=== PATIENT | male | born 1960 | race Caucasian/White ===

== ENCOUNTER 2017-12-01 08:49 | Inpatient (IN) | payer BC, OTHER, SELFPAY ==
[2017-12-01] MEDS ORDERED: Ketorolac Tromethamine 30 MG/ML VIAL ONE ×2 (09:24→14:37)
--- NOTE | 2017-12-01 09:24 | RAD ---
2 VIEWS RIGHT KNEE: Date: 12/01/17 INDICATION: Right knee deformity after fall. FINDINGS: There is a transverse, prominently displaced, transversely oriented fracture involving the patella wi th distraction of the fracture fragments approximately 6.0 cm. There is soft tissue swelling overlyin g the fracture site. No additional acute osseous abnormality is evident. IMPRESSION: Displaced and distracted transverse oriented patellar fracture. POS: [facility]
[2017-12-01 10:01] LABS: #Eosinphils 0.1 thou/uL (0.0-0.7); #Lymphocytes 1.4 thou/uL (1.20-3.40); #Monocytes 0.5 thou/uL (0.11-0.59); #Neutrophils 6.1 thou/uL (1.40-6.50); %Basophils 0.4 % (0.0-1.0); %Eosinophils 1.8 % (0.0-10.0); %Lymphocytes 17.1 % (21.0-51.0); %Monocytes 5.7 % (0.0-10.0); Hemoglobin 16.1 g/dL (14.0-18.0); Mean Corpuscular HGB CONC 33.1 g/dL (32.0-36.0); Mean Corpuscular Hemoglobin 32.5 pg (27.0-31.0); Mean Corpuscular Volume 98.3 fl (80.0-94.0); Mean Platelet Volume 7.4 fL (7.4-10.4); Platelet Count 252 thou/uL (130-400); Red Blood Cell (RBC) Count 4.95 mill/uL (4.70-6.10); White Blood Cell (WBC) Count 8.1 thou/uL (4.8-10.8)
[2017-12-01 10:08] LABS: PTT 35.2 SEC (22.9-36.1); Prothrombin Time 13.4 SEC (12.0-14.7)
[2017-12-01] MEDS ORDERED: CEFAZOLIN/Water 2 GM/20 ML SYRINGE ONE (10:43)
[2017-12-01] MEDS ORDERED: Midazolam HCl 2 mg/2 ml Vial ONE (11:02)
[2017-12-01] MEDS ORDERED: Fentanyl 100 MCG/2 ML VIAL ONE (11:02)
[2017-12-01 11:10] LABS: ALT (SGPT) 23 U/L (8-55); AST (SGOT) 18 U/L (5-34); Alkaline Phosphatase 83 U/L (40-150); Anion Gap 11 mmol/L (10-20); BUN (Urea Nitrogen) 17 mg/dL (8.4-25.7); Bilirubin, Total 0.4 mg/dL (0.2-1.2); Calc. Creatinine Clearance 0 mL/min (70-130); Carbon Dioxide 25 mmol/L (22-29); Chloride 105 mmol/L (98-107); Estimated GFR-MDRD 81; Globulin 2.8 g/dL (2.4-3.5); Glucose 104 mg/dL (70-105); Potassium 4.2 mmol/L (3.5-5.1); Protein, Total 6.8 g/dL (6.0-8.3); Sodium 137 mmol/L (136-145)
[2017-12-01] MEDS ORDERED: Promethazine HCl 25 MG/ML VIAL IM PRN ×2 (11:24→12:56)
[2017-12-01] MEDS ORDERED: Ropivacaine 0.2% 550 ML 550 ML NERVE BLCK SCH (11:24)
[2017-12-01] MEDS ORDERED: Zolpidem Tartrate 5 MG TAB PO PRN (11:24)
[2017-12-01] MEDS ORDERED: traMADol HCl 50 MG TAB PO PRN ×4 (11:24→12:56)
[2017-12-01] MEDS ORDERED: HYDROcodone/Acetaminophen 10/325 mg Tablet PO PRN ×3 (11:24→12:56)
[2017-12-01] MEDS ORDERED: Fentanyl 100 MCG/2 ML VIAL IV PRN (11:24)
[2017-12-01] MEDS ORDERED: Ondansetron HCl/PF 4 MG/2 ML Vial IVP PRN ×2 (11:24→12:56)
--- NOTE | 2017-12-01 12:06 | HP ---
HISTORY OF PRESENT ILLNESS: This is a very pleasant gentleman who was at work today, he slipped on s [employer] compound and landed on his flexed right knee. PAST MEDICAL HISTORY: Positive for high cholesterol, possible hypertension, but may possibly just be due to the pain. ALLERGIES TO MEDICATIONS: None. CURRENT MEDICATIONS: Cholesterol medication. SOCIAL HISTORY: He smokes cigarettes. He does not drink excessive alcohol. He is gainfully employe d, has good social support network. PHYSICAL EXAMINATION: GENERAL: Shows a pleasant gentleman who is in no distress unless his leg is moved. HEENT: Normocephalic, atraumatic. NECK: Supple. LUNGS: Clear. HEART: Regular rhythm. EXTREMITIES: Right knee shows flexion deformity, palpable gap in the patella, intact DP and PT pulse s. Intact sensation. No active motor quad function due to pain. LABORATORY AND X-RAY FINDINGS: Radiographs show a widely displaced patella fracture. PLAN: ORIF. He understands risk of infection, stiffness, nerve or blood vessel damage, blood clots, transfusion, and he understands there is particularly high rate of hardware removal for patell ar fractures because the hardware is so superficial. He would like to proceed with surgery.
[2017-12-01] MEDS ORDERED: Acetaminophen 325 MG TAB PO PRN (12:56)
[2017-12-01] MEDS ORDERED: TETANUS AND DIPHTHERIA TOX/PF 0.5 ML DISP.SYRIN IM SCH (12:56)
[2017-12-01] MEDS ORDERED: Fentanyl 100 MCG/2 ML VIAL SLOW IVP PRN (12:56)
[2017-12-01] MEDS ORDERED: Ondansetron HCl/PF 4 MG/2 ML Vial IV PRN (12:56)
[2017-12-01] MEDS ORDERED: Morphine 4 MG/ML Carpuject IVP PRN (12:56)
[2017-12-01] MEDS ORDERED: Promethazine HCl 25 MG/ML VIAL SLOW IVP PRN (12:56)
[2017-12-01] MEDS ORDERED: PHARMACY TO RENALLY ADJUST ABX FS SCH (12:56)
[2017-12-01] MEDS ORDERED: Ropivacaine 0.5% HCl/PF (150 MG/30 ML VIAL) ONE (13:52)
--- NOTE | 2017-12-01 13:56 | OP ---
PREOPERATIVE DIAGNOSIS: Displaced patellar fracture, right. POSTOPERATIVE DIAGNOSIS: Displaced patellar fracture, right. PROCEDURE PERFORMED: Open repair of right patellar fracture. SURGEON: Sudeep Yu M.D. KIT ASSEMBLER: Bria. BLOOD LOSS: Minimal. SPECIMEN: None. DRAINS: None. COMPLICATIONS: None. TOURNIQUET TIME: 30 minutes. DESCRIPTION OF THE PROCEDURE: The patient was taken to the operating where general anesthesia was in duced. She received Ancef preoperatively. The right leg was prepped and draped in the usual sterile fashion. I exposed the fracture with an anterior incision. Irrigation was performed. Hematoma was evacuated from the joint. The inferior pole of the patella was severely comminuted and this was sim ply excised. Superior pole was intact involving about two-third of the patella. I prepared the up llar tendon with #5 Ethibond suture in a [place] type fashion and passed sutures through the inferior tendon and then passed these back up through the patella and tied them over long bony bridge with exc ellent compression of soft tissues against freshened bone. The retinaculum was repaired all the way from the collateral ligament anteriorly on both sides using #2 Vicryl. The knee was able to be flexe d easily to 90 degrees without rupturing the repair and the subcutaneous tissue closed with 2-0 Vicry l skin was closed with deric. Tourniquet was released and sterile dressings applied. There were n o complications.
[2017-12-01 14:10] VITALS: BMI 27.6
[2017-12-01] MEDS: HYDROcodone/Acetaminophen 10/325 mg Tablet PO PRN ×3 (14:19→22:48)
[2017-12-01] MEDS: Sodium Chloride 0.9% 100 ML IV SCH ×6 (14:27→22:39)
[2017-12-01] MEDS ORDERED: Ondansetron HCl/PF 4 MG/2 ML Vial ONE (14:37)
[2017-12-01] MEDS ORDERED: Dexamethasone 20 MG/5 ML VIAL ONE (14:37)
[2017-12-01] MEDS ORDERED: PHENYLEPHRINE-NS 100 MCG/ML 10 ML SYRINGE ONE (14:37)
[2017-12-01] MEDS ORDERED: Lidocaine 1% PF 5 ML VIAL ONE (14:37)
[2017-12-01] MEDS ORDERED: PROPOFOL 200 MG/20 ML VIAL ONE (14:37)
[2017-12-01] MEDS: Ketorolac Tromethamine 30 MG/ML VIAL IVP SCH ×2 (17:37→22:47)
[2017-12-01] MEDS ORDERED: CEFAZOLIN/Water 2 GM/20 ML SYRINGE SLOW IVP SCH (18:00)
[2017-12-01] MEDS ORDERED: FLU VACC QS2017-18 36 mo. & older 0.5 ML SYRINGE IM ONE (21:00)
[2017-12-01] MEDS: CEFAZOLIN/Water 2 GM/20 ML SYRINGE SLOW IVP SCH (22:47)
[2017-12-02] MEDS: Sodium Chloride 0.9% 100 ML IV SCH (01:44)
[2017-12-02] MEDS: CEFAZOLIN/Water 2 GM/20 ML SYRINGE SLOW IVP SCH ×2 (05:02→13:10)
[2017-12-02] MEDS: Ketorolac Tromethamine 30 MG/ML VIAL IVP SCH ×2 (05:02→13:09)
[2017-12-02 08:20] VITALS: BP 177/100; TEMP 98.5
[2017-12-02] MEDS: HYDROcodone/Acetaminophen 10/325 mg Tablet PO PRN ×2 (08:49→13:10)
--- NOTE | 2017-12-04 11:25 | DIS ---
DATE OF ADMISSION: 12/01/2017 DATE OF DISCHARGE: 12/02/2017 PREOPERATIVE DIAGNOSIS: Displaced patellar fracture, right. POSTOPERATIVE DIAGNOSIS: Displaced patellar fracture, right. PROCEDURE: The patient underwent an open repair of right patellar fracture. HOSPITAL COURSE: Hospital stay was unremarkable. His pain was controlled. He had no postoperative complications. DISCHARGE CONDITION: Good/stable. DISPOSITION: Home with family. FOLLOWUP: Followup would be in 10-14 days, sooner if there are problems or concerns. DISCHARGE MEDICATIONS: Given with usage instructions. Sarath Everett PA-C dictating for Dr. Sudeep Yu.
== END 2017-12-02 15:23 | disposition home or self-care (01) | DRG 489 ==
LOC: ERS 08:49 → SDC 10:30 → SJJU 10:37
PROVIDERS: ADMIT Orthopaedic Surgery; ATTEND Orthopaedic Surgery
PROC: 0QBD0ZZ Excision of Right Patella, Open Approach (ICD-10-PCS; principal; 2017-12-02)
PROC: 0LQQ0ZZ Repair Right Knee Tendon, Open Approach (ICD-10-PCS; 2017-12-02)
PROC: 0MQN0ZZ Repair Right Knee Bursa and Ligament, Open Approach (ICD-10-PCS; 2017-12-02)
PROC: 3E0T3BZ Introduction of Anesthetic Agent into Peripheral Nerves and Plexi, Percutaneous Approach (ICD-10-PCS; 2017-12-02)
DX: S82.001A Unspecified fracture of right patella, initial encounter for closed fracture (principal); W18.30XA Fall on same level, unspecified, initial encounter
CPT/HCPCS: 36415; 80053; 85025; 85610; 85730; 86850; 86900; 86901; 90471; 90682; 90732; 93005; 96374; A4306; G0008; G0009; G0390; G8978-GP-CL; G8979-GP-CK; J1100; J1885; J2001; J2250; J2405; J2704; J2795; J3010; Q2036

== ENCOUNTER 2017-12-02 21:06 | Emergency (ER) | payer BC, SELFPAY ==
[2017-12-02] MEDS ORDERED: Ondansetron ODT 4 MG TAB ONE (21:34)
== END 2017-12-02 23:09 | disposition home or self-care (01) ==
LOC: SCSER 21:06
DX: I10 Essential (primary) hypertension (principal); R11.2 Nausea with vomiting, unspecified; F17.210 Nicotine dependence, cigarettes, uncomplicated
CPT/HCPCS: 93005; Q0162